=== PATIENT | male | born 1985 | race Caucasian/White ===

== ENCOUNTER 2016-09-28 09:03 | Emergency (ER) | payer OTHER | END 2016-09-28 10:20 | disposition home or self-care (01) | LOC: D.ER 09:03 | DX: K02.9 Dental caries, unspecified (principal); K08.89 Other specified disorders of teeth and supporting structures; M54.5 Low back pain; E87.6 Hypokalemia ==

== ENCOUNTER 2016-10-16 11:01 | Emergency (ER) | payer OTHER | END 2016-10-16 14:16 | disposition left against medical advice (07) | LOC: D.ER 11:01 | DX: K08.89 Other specified disorders of teeth and supporting structures (principal) ==

== ENCOUNTER 2016-10-17 06:11 | Emergency (ER) | payer OTHER | END 2016-10-17 06:40 | disposition home or self-care (01) | LOC: D.ER 06:11 | DX: K08.89 Other specified disorders of teeth and supporting structures (principal); K02.9 Dental caries, unspecified; K04.7 Periapical abscess without sinus ==

== ENCOUNTER 2017-09-23 06:07 | Emergency (ER) | payer OTHER | END 2017-09-23 07:32 | disposition home or self-care (01) | LOC: D.ER 06:07 | DX: S83.91XA Sprain of unspecified site of right knee, initial encounter (principal); W01.0XXA Fall on same level from slipping, tripping and stumbling without subsequent striking against object, initial encounter; Y93.64 Activity, baseball; Y92.017 Garden or yard in single-family (private) house as the place of occurrence of the external cause; F17.200 Nicotine dependence, unspecified, uncomplicated ==